=== PATIENT | male | born 1995 | race Hispanic/Latino ===

== ENCOUNTER 2022-01-03 23:44 | Emergency (ER) | payer OTHER, SELFPAY ==
[2022-01-04] MEDS ORDERED: Ketorolac Tromethamine 30 MG/ML VIAL ONE (00:37)
== END 2022-01-04 01:32 | disposition home or self-care (01) ==
LOC: ERS 23:44
DX: S80.812A Abrasion, left lower leg, initial encounter (principal); S80.811A Abrasion, right lower leg, initial encounter; V40.1XXA Car passenger injured in collision with pedestrian or animal in nontraffic accident, initial encounter; W22.10XA Striking against or struck by unspecified automobile airbag, initial encounter
CPT/HCPCS: 96372; J1885

== ENCOUNTER 2023-07-05 15:08 | Outpatient (CLI) | payer BC | END 2023-07-05 15:09 | disposition home or self-care (01) | LOC: BICULT 15:08 | PROVIDERS: ATTEND Nurse Practitioner Family | DX: N50.9 Disorder of male genital organs, unspecified (principal); N44.2 Benign cyst of testis; N50.3 Cyst of epididymis | CPT/HCPCS: 76870; 93976 ==